=== PATIENT | female | born 1950 | race Caucasian/White ===

== ENCOUNTER 2017-07-02 12:07 | Inpatient (IN) | payer BC, MEDICARE ==
[2017-07-02 14:58] LABS: ADD MAN DIFF? NO
[2017-07-02 15:01] LABS: WHITE BLOOD COUNT 9.3 10^3/ul (4.8-10.8)
[2017-07-02 15:01] LABS: BASOPHIL # 0.1 10^3/ul (0.0-0.1); BASOPHILS % 0.5 % (0.0-2.0); EOSINOPHILS # 0.1 10^3/ul (0.0-0.5); EOSINOPHILS % 1.4 % (0.0-7.0); HEMATOCRIT 35.3 % (37.0-47.0); HEMOGLOBIN 10.7 g/dl (12.0-16.0); LYMPHOCYTES # 1.9 10^3/ul (0.8-2.9); LYMPHOCYTES % 20.5 % (15.0-51.0); MEAN CORPUSCULAR HEMOGLOBIN 20.6 pg (29.0-33.0); MEAN CORPUSCULAR HGB CONC 30.3 g/dl (32.0-37.0); MEAN PLATELET VOLUME 8.3 fl (7.4-10.4); MONOCYTE # 0.5 10^3/ul (0.3-0.9); MONOCYTES % 5.6 % (0.0-11.0); NEUTROPHIL # 6.6 10^3/ul (1.6-7.5); NEUTROPHILS % 71.4 % (39.0-77.0); PLATELET COUNT 596 10^3/UL (140-415); RED BLOOD COUNT 5.19 10^6/ul (4.20-5.40); RED CELL DISTRIBUTION WIDTH 13.9 % (11.5-14.5)
[2017-07-02 15:15] LABS: INR 1.04; PARTIAL THROMBOPLASTIN TIME 32.4 Sec (25.0-35.0); PROTIME 13.7 Sec (11.9-14.9); PT RATIO 1.1
[2017-07-02 15:21] LABS: ALANINE AMINOTRANSFERASE 34 IU/L (13-69); ALBUMIN 4.3 g/dl (3.3-4.9); ALBUMIN/GLOBULIN RATIO 0.91; ALKALINE PHOSPHATASE 89 IU/L (42-121); ANION GAP 15 (8-16); ASPARTATE AMINO TRANSFERASE 25 IU/L (15-46); BILIRUBIN,INDIRECT 0.1 mg/dl (0-1.1); BILIRUBIN,TOTAL 0.1 mg/dl (0.2-1.3); BLOOD UREA NITROGEN 9 mg/dl (7-20); CALCIUM 9.7 mg/dl (8.4-10.2); CARBON DIOXIDE 28 mmol/L (21-31); CHLORIDE 97 mmol/L (97-110); CREATININE 0.72 mg/dl (0.44-1.00); GLUCOSE 108 mg/dl (70-220); LIPASE 46 U/L (23-300); POTASSIUM 3.4 mmol/L (3.5-5.1); SODIUM 137 mmol/L (135-144)
[2017-07-02 15:24] LABS: LACTIC ACID 1.1 mmol/L (0.5-2.0)
[2017-07-02 15:28] LABS: ADD UMIC YES; UR ASCORBIC ACID NEGATIVE (NEGATIVE); UR BACTERIA FEW /HPF (NONE SEEN); UR BILIRUBIN (Dip) NEGATIVE (NEGATIVE); UR BLOOD (Dip) 1+ mg/dL (NEGATIVE); UR CLARITY CLEAR (CLEAR); UR COLOR YELLOW (YELLOW); UR GLUCOSE (Dip) NEGATIVE (NEGATIVE); UR KETONES (Dip) NEGATIVE (NEGATIVE); UR LEUKOCYTE ESTERASE (Dip) 3+ Leu/ul (NEGATIVE); UR NITRITE (Dip) NEGATIVE (NEGATIVE); UR RBC 2 /HPF (0-5); UR SPECIFIC GRAVITY (Dip) 1.005 (1.003-1.030); UR TOTAL PROTEIN (Dip) NEGATIVE (NEGATIVE); UR UROBILINOGEN (Dip) NEGATIVE (NEGATIVE); UR WBC 23 /HPF (0-5)
[2017-07-02] MEDS: PIPER-TAZO 3.375 GM IV (PMX) 50 ML IVPB (16:48)
[2017-07-02] MEDS: IOHEXOL 300MG/ML 150 ML BTL (16:59)
[2017-07-02] MEDS: SOD CHLORIDE 0.9% 100 ML (16:59)
[2017-07-02] MEDS: ONDANSETRON 4 MG INJ IV (19:51)
[2017-07-02] MEDS: morphine 4 MG/ML VIAL IV (19:51)
[2017-07-02] MEDS ORDERED: ONDANSETRON 4 MG INJ IV (21:00)
[2017-07-02] MEDS ORDERED: ACETAMINOPHEN 325 MG TAB PO ×2 (21:00→21:30)
[2017-07-02] MEDS ORDERED: ZOLPIDEM 5 MG TAB PO (21:30)
[2017-07-02] MEDS ORDERED: MAGNESIUM HYDROXIDE 30ML CUP PO (21:30)
[2017-07-02] MEDS ORDERED: HYDROCODONE/APAP (10/325) TAB PO (21:30)
[2017-07-02] MEDS ORDERED: LOSARTAN 50 MG TAB PO (22:00)
[2017-07-02] MEDS ORDERED: HYDROCHLOROTHIAZIDE 12.5 MG CAP PO (22:00)
[2017-07-02] MEDS: PROPRANOLOL 10 MG TAB PO (23:02)
[2017-07-02] MEDS: LOSARTAN 50 MG TAB PO (23:03)
[2017-07-02] MEDS: HYDROCHLOROTHIAZIDE 12.5 MG CAP PO (23:04)
[2017-07-02] MEDS: metroNIDAZOLE 500 MG/NS (PMX) 100 ML IVPB (23:10)
[2017-07-03 05:30] LABS: ADD MAN DIFF? NO
[2017-07-03 05:33] LABS: WHITE BLOOD COUNT 8.8 10^3/ul (4.8-10.8)
[2017-07-03 05:33] LABS: BASOPHIL # 0.1 10^3/ul (0.0-0.1); BASOPHILS % 0.8 % (0.0-2.0); EOSINOPHILS # 0.2 10^3/ul (0.0-0.5); EOSINOPHILS % 2.6 % (0.0-7.0); HEMATOCRIT 30.6 % (37.0-47.0); HEMOGLOBIN 9.5 g/dl (12.0-16.0); LYMPHOCYTES # 2.2 10^3/ul (0.8-2.9); LYMPHOCYTES % 24.9 % (15.0-51.0); MEAN CORPUSCULAR VOLUME 67.5 fl (82.0-101.0); MEAN PLATELET VOLUME 8.5 fl (7.4-10.4); MONOCYTE # 0.7 10^3/ul (0.3-0.9); MONOCYTES % 7.4 % (0.0-11.0); NEUTROPHIL # 5.6 10^3/ul (1.6-7.5); NEUTROPHILS % 63.6 % (39.0-77.0); PLATELET COUNT 506 10^3/UL (140-415); RED BLOOD COUNT 4.53 10^6/ul (4.20-5.40)
[2017-07-03] MEDS: metroNIDAZOLE 500 MG/NS (PMX) 100 ML IVPB ×3 (05:50→23:14)
[2017-07-03 05:52] LABS: ALANINE AMINOTRANSFERASE 29 IU/L (13-69); ALBUMIN 3.7 g/dl (3.3-4.9); ALKALINE PHOSPHATASE 68 IU/L (42-121); ANION GAP 11 (8-16); ASPARTATE AMINO TRANSFERASE 21 IU/L (15-46); BLOOD UREA NITROGEN 9 mg/dl (7-20); CALCIUM 9.4 mg/dl (8.4-10.2); CARBON DIOXIDE 30 mmol/L (21-31); CHLORIDE 102 mmol/L (97-110); CHOL/HDL RATIO 6.5 RATIO; CHOLESTEROL 137 mg/dl (100-200); CREATININE 0.75 mg/dl (0.44-1.00); GLUCOSE 110 mg/dl (70-220); HDL CHOLESTEROL 21 mg/dl (35-98); LDL CHOLESTEROL,CALCULATED 85 mg/dl; POTASSIUM 3.8 mmol/L (3.5-5.1); SODIUM 139 mmol/L (135-144); TOTAL PROTEIN 7.8 g/dl (6.1-8.1); TRIGLYCERIDES 155 mg/dl (0-149)
[2017-07-03 05:53] LABS: INR 1.09; PROTIME 14.3 Sec (11.9-14.9); PT RATIO 1.1
[2017-07-03 05:54] LABS: PARTIAL THROMBOPLASTIN TIME 32.2 Sec (25.0-35.0)
[2017-07-03 07:40] LABS: ERYTHROCYTE SEDIMENTATION RATE 44 mm/Hr (0-30)
[2017-07-03] MEDS: LEVOFLOXACIN 500MG/D5W (PMX) 100 ML IVPB (09:12)
[2017-07-03] MEDS: DILTIAZEM (CD) 120 MG CAP PO (09:12)
[2017-07-03 14:51] LABS: CANCER ANTIGEN 19-9 1.8 U/ml (0.0-37.0)
[2017-07-03] MEDS: BISACODYL (EC) 5 MG TAB PO ×2 (15:17→23:13)
[2017-07-03] MEDS: MAGNESIUM CITRATE 300 ML BTL PO (16:20)
[2017-07-03 17:56] LABS: CANCER ANTIGEN 125 6.6 U/ml (0.0-35.0)
[2017-07-03] MEDS: POLYETHYLENE GLYCOL 3350 119 GM POWDER PO ×2 (18:58→23:13)
[2017-07-03] MEDS: HYDROCHLOROTHIAZIDE 12.5 MG CAP PO (20:46)
[2017-07-03] MEDS: LOSARTAN 50 MG TAB PO (20:46)
[2017-07-03] MEDS: PROPRANOLOL 10 MG TAB PO (23:17)
[2017-07-04] MEDS: MICONAZOLE 2% 45 GM VAG CR VAG ×6 (01:30→21:09)
[2017-07-04] MEDS: metroNIDAZOLE 500 MG/NS (PMX) 100 ML IVPB ×3 (05:12→22:11)
[2017-07-04] MEDS: PROPOFOL 20 ML ×2 (07:05→07:56)
[2017-07-04] MEDS ORDERED: OXYCODONE/ACETAMINOPHEN (5/325) TAB PO ×2 (08:00)
[2017-07-04] MEDS ORDERED: MEPERIDINE 25 MG INJ IV (08:00)
[2017-07-04] MEDS ORDERED: EPHEDrine SULFATE 50 MG/5 ML SYG IV (08:00)
[2017-07-04] MEDS ORDERED: METOCLOPRAMIDE 10 MG INJ IV (08:00)
[2017-07-04] MEDS ORDERED: FENTAnyl 50 MCG/ML VIAL IV ×3 (08:00)
[2017-07-04] MEDS ORDERED: ONDANSETRON 4 MG INJ IV (08:00)
[2017-07-04] MEDS ORDERED: DIPHENHYDRAMINE 50 MG INJ IV (08:00)
[2017-07-04] MEDS ORDERED: hydrALAzine 20 MG INJ IV (08:00)
[2017-07-04] MEDS ORDERED: LABETALOL HCL 20MG INJ IV (08:00)
[2017-07-04] MEDS: PROPRANOLOL 10 MG TAB PO ×2 (09:00→21:09)
[2017-07-04] MEDS: DILTIAZEM (CD) 120 MG CAP PO (09:29)
[2017-07-04] MEDS: LEVOFLOXACIN 500MG/D5W (PMX) 100 ML IVPB (09:30)
[2017-07-04 11:01] LABS: CARCINOEMBRYONIC ANTIGEN 3.3 ng/ml (0.0-5.0)
[2017-07-04] MEDS: LOSARTAN 50 MG TAB PO (20:29)
[2017-07-04] MEDS: HYDROCHLOROTHIAZIDE 12.5 MG CAP PO (20:29)
[2017-07-05 05:59] LABS: ADD MAN DIFF? NO
[2017-07-05] MEDS: metroNIDAZOLE 500 MG/NS (PMX) 100 ML IVPB ×3 (05:59→22:24)
[2017-07-05 06:09] LABS: WHITE BLOOD COUNT 8.8 10^3/ul (4.8-10.8)
[2017-07-05 06:09] LABS: BASOPHIL # 0.1 10^3/ul (0.0-0.1); BASOPHILS % 0.6 % (0.0-2.0); EOSINOPHILS # 0.2 10^3/ul (0.0-0.5); EOSINOPHILS % 1.8 % (0.0-7.0); HEMATOCRIT 32.5 % (37.0-47.0); HEMOGLOBIN 9.9 g/dl (12.0-16.0); LYMPHOCYTES # 2.4 10^3/ul (0.8-2.9); LYMPHOCYTES % 27.3 % (15.0-51.0); MEAN CORPUSCULAR HEMOGLOBIN 20.6 pg (29.0-33.0); MEAN CORPUSCULAR HGB CONC 30.5 g/dl (32.0-37.0); MEAN CORPUSCULAR VOLUME 67.7 fl (82.0-101.0); MEAN PLATELET VOLUME 8.4 fl (7.4-10.4); MONOCYTE # 0.7 10^3/ul (0.3-0.9); MONOCYTES % 7.4 % (0.0-11.0); NEUTROPHIL # 5.4 10^3/ul (1.6-7.5); NEUTROPHILS % 62.1 % (39.0-77.0); PLATELET COUNT 584 10^3/UL (140-415); RED CELL DISTRIBUTION WIDTH 13.7 % (11.5-14.5)
[2017-07-05 06:47] LABS: ANION GAP 15 (8-16); BLOOD UREA NITROGEN 3 mg/dl (7-20); CALCIUM 8.7 mg/dl (8.4-10.2); CARBON DIOXIDE 27 mmol/L (21-31); CHLORIDE 100 mmol/L (97-110); CREATININE 0.65 mg/dl (0.44-1.00); GLUCOSE 101 mg/dl (70-220); POTASSIUM 3.2 mmol/L (3.5-5.1); SODIUM 139 mmol/L (135-144)
[2017-07-05] MEDS: LEVOFLOXACIN 500MG/D5W (PMX) 100 ML IVPB (09:20)
[2017-07-05] MEDS: DILTIAZEM (CD) 120 MG CAP PO (09:20)
[2017-07-05] MEDS: MICONAZOLE 2% 45 GM VAG CR VAG ×4 (09:22→20:16)
[2017-07-05] MEDS: CEPASTAT LOZENGE MT (14:57)
[2017-07-05] MEDS: POTASSIUM CHLORIDE (SR) 20 MEQ TAB PO (15:01)
[2017-07-05] MEDS: LOSARTAN 50 MG TAB PO (20:12)
[2017-07-05] MEDS: HYDROCHLOROTHIAZIDE 12.5 MG CAP PO (20:12)
[2017-07-05] MEDS: PROPRANOLOL 10 MG TAB PO (22:24)
[2017-07-06] MEDS: metroNIDAZOLE 500 MG/NS (PMX) 100 ML IVPB ×3 (05:53→22:06)
[2017-07-06] MEDS: DILTIAZEM (CD) 120 MG CAP PO (09:00)
[2017-07-06] MEDS: MICONAZOLE 2% 45 GM VAG CR VAG ×4 (09:00→20:40)
[2017-07-06] MEDS: POTASSIUM CHLORIDE (SR) 20 MEQ TAB PO (09:24)
[2017-07-06] MEDS: LEVOFLOXACIN 500MG/D5W (PMX) 100 ML IVPB (09:25)
[2017-07-06] MEDS: LOSARTAN 50 MG TAB PO (20:41)
[2017-07-06] MEDS: PROPRANOLOL 10 MG TAB PO (20:41)
[2017-07-06] MEDS: HYDROCHLOROTHIAZIDE 12.5 MG CAP PO (20:42)
[2017-07-07] MEDS: metroNIDAZOLE 500 MG/NS (PMX) 100 ML IVPB ×3 (05:58→22:31)
[2017-07-07 07:14] LABS: ANION GAP 13 (8-16); BLOOD UREA NITROGEN 8 mg/dl (7-20); CALCIUM 9.1 mg/dl (8.4-10.2); CARBON DIOXIDE 28 mmol/L (21-31); CHLORIDE 103 mmol/L (97-110); CREATININE 0.71 mg/dl (0.44-1.00); GLUCOSE 95 mg/dl (70-220); SODIUM 140 mmol/L (135-144)
[2017-07-07] MEDS: LEVOFLOXACIN 500MG/D5W (PMX) 100 ML IVPB (08:54)
[2017-07-07] MEDS: POTASSIUM CHLORIDE (SR) 20 MEQ TAB PO (08:55)
[2017-07-07] MEDS: DILTIAZEM (CD) 120 MG CAP PO (08:56)
[2017-07-07] MEDS: MICONAZOLE 2% 45 GM VAG CR VAG ×2 (08:57→13:00)
[2017-07-07] MEDS: LOSARTAN 50 MG TAB PO (20:52)
[2017-07-07] MEDS: HYDROCHLOROTHIAZIDE 12.5 MG CAP PO (20:52)
[2017-07-07] MEDS: ENOXAPARIN 40 MG/0.4 ML SYG SC (21:04)
[2017-07-07] MEDS: PROPRANOLOL 10 MG TAB PO (23:37)
[2017-07-08] MEDS: metroNIDAZOLE 500 MG/NS (PMX) 100 ML IVPB ×3 (06:30→22:03)
[2017-07-08] MEDS: LEVOFLOXACIN 500MG/D5W (PMX) 100 ML IVPB (09:00)
[2017-07-08] MEDS: DILTIAZEM (CD) 120 MG CAP PO (09:18)
[2017-07-08] MEDS: POTASSIUM CHLORIDE (SR) 20 MEQ TAB PO (09:18)
[2017-07-08] MEDS: ENOXAPARIN 40 MG/0.4 ML SYG SC ×2 (09:24→20:49)
[2017-07-08] MEDS: HYDROCHLOROTHIAZIDE 12.5 MG CAP PO (20:47)
[2017-07-08] MEDS: LOSARTAN 50 MG TAB PO (20:47)
[2017-07-08] MEDS: PROPRANOLOL 10 MG TAB PO (23:09)
[2017-07-09] MEDS: metroNIDAZOLE 500 MG/NS (PMX) 100 ML IVPB ×3 (05:57→21:49)
[2017-07-09] MEDS: DILTIAZEM (CD) 120 MG CAP PO (08:21)
[2017-07-09] MEDS: POTASSIUM CHLORIDE (SR) 20 MEQ TAB PO (08:21)
[2017-07-09] MEDS: LEVOFLOXACIN 500MG/D5W (PMX) 100 ML IVPB (08:21)
[2017-07-09] MEDS: ENOXAPARIN 40 MG/0.4 ML SYG SC (08:22)
[2017-07-09 12:06] LABS: INR 1.05; PROTIME 13.8 Sec (11.9-14.9); PT RATIO 1.1
[2017-07-09] MEDS: PEG/ELECTROLYTES 4L BTL PO (12:13)
[2017-07-09] MEDS: HYDROCHLOROTHIAZIDE 12.5 MG CAP PO (20:34)
[2017-07-09] MEDS: LOSARTAN 50 MG TAB PO (20:35)
[2017-07-09] MEDS: PROPRANOLOL 10 MG TAB PO (22:52)
[2017-07-10 05:17] LABS: WHITE BLOOD COUNT 11.4 10^3/ul (4.8-10.8)
[2017-07-10 05:17] LABS: ADD MAN DIFF? NO; BASOPHIL # 0.1 10^3/ul (0.0-0.1); BASOPHILS % 0.5 % (0.0-2.0); EOSINOPHILS # 0.1 10^3/ul (0.0-0.5); EOSINOPHILS % 1.1 % (0.0-7.0); LYMPHOCYTES # 1.7 10^3/ul (0.8-2.9); LYMPHOCYTES % 15.1 % (15.0-51.0); MEAN CORPUSCULAR HEMOGLOBIN 21.1 pg (29.0-33.0); MEAN CORPUSCULAR VOLUME 67.9 fl (82.0-101.0); MEAN PLATELET VOLUME 8.7 fl (7.4-10.4); MONOCYTE # 0.8 10^3/ul (0.3-0.9); MONOCYTES % 7.1 % (0.0-11.0); NEUTROPHIL # 8.7 10^3/ul (1.6-7.5); NEUTROPHILS % 75.9 % (39.0-77.0); PLATELET COUNT 429 10^3/UL (140-415); RED BLOOD COUNT 4.27 10^6/ul (4.20-5.40); RED CELL DISTRIBUTION WIDTH 15.3 % (11.5-14.5)
[2017-07-10 05:37] LABS: ANION GAP 10 (8-16); BLOOD UREA NITROGEN 2 mg/dl (7-20); CALCIUM 8.6 mg/dl (8.4-10.2); CARBON DIOXIDE 25 mmol/L (21-31); CHLORIDE 104 mmol/L (97-110); CREATININE 0.56 mg/dl (0.44-1.00); GLUCOSE 92 mg/dl (70-220); POTASSIUM 3.2 mmol/L (3.5-5.1); SODIUM 136 mmol/L (135-144)
[2017-07-10] MEDS: metroNIDAZOLE 500 MG/NS (PMX) 100 ML IVPB ×3 (05:58→21:16)
[2017-07-10] MEDS: LEVOFLOXACIN 500MG/D5W (PMX) 100 ML IVPB (09:47)
[2017-07-10] MEDS: DILTIAZEM (CD) 120 MG CAP PO (09:48)
[2017-07-10] MEDS: POTASSIUM CHLORIDE (SR) 20 MEQ TAB PO (09:48)
[2017-07-10] MEDS ORDERED: PROPOFOL 20 ML (13:27)
[2017-07-10] MEDS ORDERED: ROCURONIUM 50 MG INJ ×4 (13:27→15:01)
[2017-07-10] MEDS ORDERED: MIDAZOLAM 1 MG/ML 2 ML INJ (13:27)
[2017-07-10] MEDS ORDERED: LIDOCAINE 1% (MDV) 20 ML INJ (13:28)
[2017-07-10] MEDS ORDERED: ROPIVACAINE 0.2% 20 ML VIAL (14:43)
[2017-07-10] MEDS ORDERED: ONDANSETRON 4 MG INJ ×2 (14:45→18:21)
[2017-07-10] MEDS ORDERED: FAMOTIDINE 20 MG INJ (14:46)
[2017-07-10] MEDS ORDERED: DEXAMETHASONE 4 MG/ML 1 ML INJ (14:46)
[2017-07-10] MEDS ORDERED: PHENYLephrine (100 MCG/ML) 5ML SYG (14:47)
[2017-07-10] MEDS ORDERED: FENTAnyl 50 MCG/ML VIAL (14:54)
[2017-07-10] MEDS ORDERED: ROPIVACAINE 0.5 % 30 ML VIAL (14:55)
[2017-07-10] MEDS ORDERED: metroNIDAZOLE 500 MG/NS (PMX) 100 ML IVPB (15:01)
[2017-07-10] MEDS ORDERED: CEFAZOLIN 1 GM INJ ×2 (15:01→17:46)
[2017-07-10] MEDS ORDERED: FENTAnyl 2MCG/ML-ROPIV 0.2% 100 ML (17:56)
[2017-07-10] MEDS ORDERED: SUGAMMADEX SODIUM 200 MG/2 ML VIAL IV ×2 (18:21→18:47)
[2017-07-10] MEDS ORDERED: morphine 2 MG INJ IV (19:00)
[2017-07-10] MEDS: LIDOCAINE 2% (MDV) 20 ML INJ (19:28)
[2017-07-10] MEDS: BUPIVACAINE 0.5%/EPI (SDV) 30 ML INJ (19:28)
[2017-07-10] MEDS ORDERED: NALOXONE (0.4 MG/ML) INJ IV (19:30)
[2017-07-10] MEDS ORDERED: HYDROmorphONE 0.5 MG/0.5 ML SYG IV ×2 (19:30)
[2017-07-10] MEDS ORDERED: HYDROmorphONE (0.2 MG/ML) 10ML SYG IV (20:00)
[2017-07-10] MEDS: HYDROCHLOROTHIAZIDE 12.5 MG CAP PO (21:15)
[2017-07-10] MEDS: PROPRANOLOL 10 MG TAB PO (21:15)
[2017-07-10] MEDS: LOSARTAN 50 MG TAB PO (21:15)
[2017-07-10] MEDS: DEXTROSE 5%-0.45% NACL 1,000 ML IV (22:44)
[2017-07-11] MEDS: FENTAnyl 2MCG/ML-ROPIV 0.2% 100 ML BAG EPI ×3 (02:27→17:35)
[2017-07-11] MEDS: metroNIDAZOLE 500 MG/NS (PMX) 100 ML IVPB ×3 (05:30→22:25)
[2017-07-11 05:40] LABS: ADD MAN DIFF? NO
[2017-07-11 07:27] LABS: WHITE BLOOD COUNT 18.7 10^3/ul (4.8-10.8)
[2017-07-11 07:27] LABS: BASOPHILS % 0.2 % (0.0-2.0); HEMATOCRIT 28.3 % (37.0-47.0); HEMOGLOBIN 8.5 g/dl (12.0-16.0); LYMPHOCYTES # 0.9 10^3/ul (0.8-2.9); LYMPHOCYTES % 4.6 % (15.0-51.0); MEAN CORPUSCULAR HEMOGLOBIN 21.1 pg (29.0-33.0); MEAN CORPUSCULAR VOLUME 70.4 fl (82.0-101.0); MEAN PLATELET VOLUME 8.6 fl (7.4-10.4); MONOCYTE # 0.9 10^3/ul (0.3-0.9); NEUTROPHIL # 16.8 10^3/ul (1.6-7.5); NEUTROPHILS % 89.6 % (39.0-77.0); PLATELET COUNT 400 10^3/UL (140-415); RED BLOOD COUNT 4.02 10^6/ul (4.20-5.40); RED CELL DISTRIBUTION WIDTH 15.3 % (11.5-14.5)
[2017-07-11 07:50] LABS: ANION GAP 11 (8-16); BLOOD UREA NITROGEN 6 mg/dl (7-20); CALCIUM 8.5 mg/dl (8.4-10.2); CARBON DIOXIDE 26 mmol/L (21-31); CHLORIDE 106 mmol/L (97-110); CREATININE 0.66 mg/dl (0.44-1.00); GLUCOSE 133 mg/dl (70-220); POTASSIUM 3.9 mmol/L (3.5-5.1); SODIUM 139 mmol/L (135-144)
[2017-07-11] MEDS: LEVOFLOXACIN 500MG/D5W (PMX) 100 ML IVPB (08:54)
[2017-07-11] MEDS: DILTIAZEM (CD) 120 MG CAP PO (08:56)
[2017-07-11] MEDS: DEXTROSE 5%-0.45% NACL 1,000 ML IV ×3 (08:57→20:47)
[2017-07-11] MEDS: POTASSIUM CHLORIDE (SR) 20 MEQ TAB PO (08:59)
[2017-07-11] MEDS: ONDANSETRON 4 MG INJ IV (13:20)
[2017-07-11] MEDS: HYDROCHLOROTHIAZIDE 12.5 MG CAP PO (20:40)
[2017-07-11] MEDS: LOSARTAN 50 MG TAB PO (20:40)
[2017-07-11] MEDS: PROPRANOLOL 10 MG TAB PO (22:29)
[2017-07-12] MEDS: FENTAnyl 2MCG/ML-ROPIV 0.2% 100 ML BAG EPI ×3 (00:43→16:58)
[2017-07-12] MEDS: DEXTROSE 5%-0.45% NACL 1,000 ML IV ×2 (05:25→14:00)
[2017-07-12] MEDS: metroNIDAZOLE 500 MG/NS (PMX) 100 ML IVPB ×2 (05:25→14:41)
[2017-07-12 06:14] LABS: ADD MAN DIFF? NO
[2017-07-12 06:26] LABS: BASOPHIL # 0.1 10^3/ul (0.0-0.1); BASOPHILS % 0.4 % (0.0-2.0); EOSINOPHILS # 0.1 10^3/ul (0.0-0.5); EOSINOPHILS % 0.5 % (0.0-7.0); HEMATOCRIT 26.2 % (37.0-47.0); HEMOGLOBIN 7.8 g/dl (12.0-16.0); LYMPHOCYTES # 2.1 10^3/ul (0.8-2.9); LYMPHOCYTES % 16.2 % (15.0-51.0); MEAN CORPUSCULAR HGB CONC 29.8 g/dl (32.0-37.0); MEAN CORPUSCULAR VOLUME 70.4 fl (82.0-101.0); MEAN PLATELET VOLUME 9.2 fl (7.4-10.4); MONOCYTES % 7.2 % (0.0-11.0); NEUTROPHIL # 9.9 10^3/ul (1.6-7.5); NEUTROPHILS % 75.2 % (39.0-77.0); PLATELET COUNT 374 10^3/UL (140-415); RED BLOOD COUNT 3.72 10^6/ul (4.20-5.40); RED CELL DISTRIBUTION WIDTH 15.4 % (11.5-14.5)
[2017-07-12 06:26] LABS: WHITE BLOOD COUNT 13.2 10^3/ul (4.8-10.8)
[2017-07-12 07:38] LABS: ANION GAP 10 (8-16); BLOOD UREA NITROGEN 5 mg/dl (7-20); CALCIUM 8.4 mg/dl (8.4-10.2); CARBON DIOXIDE 29 mmol/L (21-31); CHLORIDE 101 mmol/L (97-110); CREATININE 0.66 mg/dl (0.44-1.00); GLUCOSE 95 mg/dl (70-220); POTASSIUM 3.5 mmol/L (3.5-5.1); SODIUM 136 mmol/L (135-144)
[2017-07-12] MEDS: LEVOFLOXACIN 500MG/D5W (PMX) 100 ML IVPB (08:44)
[2017-07-12] MEDS: DILTIAZEM (CD) 120 MG CAP PO (09:15)
[2017-07-12] MEDS: POTASSIUM CHLORIDE (SR) 20 MEQ TAB PO (09:15)
[2017-07-12 16:22] LABS: IMMEDIATE SPIN CROSSMATCH 1 2
[2017-07-12] MEDS: HYDROCHLOROTHIAZIDE 12.5 MG CAP PO (20:30)
[2017-07-12] MEDS: LOSARTAN 50 MG TAB PO (20:30)
[2017-07-12] MEDS: PROPRANOLOL 10 MG TAB PO (23:29)
[2017-07-13] MEDS: DEXTROSE 5%-0.45% NACL 1,000 ML IV ×3 (00:59→20:00)
[2017-07-13] MEDS: POTASSIUM CHLORIDE (SR) 20 MEQ TAB PO (09:09)
[2017-07-13] MEDS: DILTIAZEM (CD) 120 MG CAP PO (09:09)
[2017-07-13] MEDS: LOSARTAN 50 MG TAB PO (20:20)
[2017-07-13] MEDS: HYDROCHLOROTHIAZIDE 12.5 MG CAP PO (20:21)
[2017-07-13] MEDS: PROPRANOLOL 10 MG TAB PO ×2 (20:21→23:25)
[2017-07-14] MEDS: DEXTROSE 5%-0.45% NACL 1,000 ML IV (05:44)
[2017-07-14 06:09] LABS: ADD MAN DIFF? NO
[2017-07-14 06:16] LABS: WHITE BLOOD COUNT 8.9 10^3/ul (4.8-10.8)
[2017-07-14 06:16] LABS: BASOPHIL # 0.1 10^3/ul (0.0-0.1); BASOPHILS % 0.7 % (0.0-2.0); EOSINOPHILS # 0.2 10^3/ul (0.0-0.5); EOSINOPHILS % 1.9 % (0.0-7.0); HEMATOCRIT 30.6 % (37.0-47.0); HEMOGLOBIN 9.6 g/dl (12.0-16.0); LYMPHOCYTES # 1.7 10^3/ul (0.8-2.9); LYMPHOCYTES % 18.9 % (15.0-51.0); MEAN CORPUSCULAR HEMOGLOBIN 22.6 pg (29.0-33.0); MEAN CORPUSCULAR HGB CONC 31.4 g/dl (32.0-37.0); MEAN CORPUSCULAR VOLUME 72.2 fl (82.0-101.0); MEAN PLATELET VOLUME 9.2 fl (7.4-10.4); MONOCYTE # 0.8 10^3/ul (0.3-0.9); MONOCYTES % 8.5 % (0.0-11.0); NEUTROPHIL # 6.2 10^3/ul (1.6-7.5); NEUTROPHILS % 69.7 % (39.0-77.0); PLATELET COUNT 375 10^3/UL (140-415); RED BLOOD COUNT 4.24 10^6/ul (4.20-5.40); RED CELL DISTRIBUTION WIDTH 17.9 % (11.5-14.5)
[2017-07-14 06:45] LABS: ANION GAP 9 (8-16); BLOOD UREA NITROGEN 4 mg/dl (7-20); CALCIUM 8.5 mg/dl (8.4-10.2); CARBON DIOXIDE 32 mmol/L (21-31); CHLORIDE 102 mmol/L (97-110); CREATININE 0.61 mg/dl (0.44-1.00); GLUCOSE 107 mg/dl (70-220); POTASSIUM 3.2 mmol/L (3.5-5.1); SODIUM 140 mmol/L (135-144)
[2017-07-14] MEDS: POTASSIUM CHLORIDE (SR) 20 MEQ TAB PO ×2 (08:33→17:19)
[2017-07-14] MEDS: DILTIAZEM (CD) 120 MG CAP PO (08:34)
[2017-07-14] MEDS: HYDROCHLOROTHIAZIDE 12.5 MG CAP PO (20:52)
[2017-07-14] MEDS: LOSARTAN 50 MG TAB PO (20:52)
[2017-07-14] MEDS: PROPRANOLOL 10 MG TAB PO (23:23)
[2017-07-15] MEDS: POTASSIUM CHLORIDE (SR) 20 MEQ TAB PO (09:12)
[2017-07-15] MEDS: DILTIAZEM (CD) 120 MG CAP PO (09:12)
[2017-07-15] MEDS: LOSARTAN 50 MG TAB PO (20:00)
[2017-07-15] MEDS: HYDROCHLOROTHIAZIDE 12.5 MG CAP PO (20:00)
== END 2017-07-15 21:25 | disposition home or self-care (01) | DRG 330 ==
LOC: FTE 12:07 → MS1 20:40
PROC: 0DBN4ZZ Excision of Sigmoid Colon, Percutaneous Endoscopic Approach (ICD-10-PCS; principal; 2017-07-04 06:35)
PROC: 0DBP4ZZ Excision of Rectum, Percutaneous Endoscopic Approach (ICD-10-PCS; 2017-07-04 06:35)
PROC: 0UJH4ZZ Inspection of Vagina and Cul-de-sac, Percutaneous Endoscopic Approach (ICD-10-PCS; 2017-07-04 06:35)
PROC: 0DJD8ZZ Inspection of Lower Intestinal Tract, Via Natural or Artificial Opening Endoscopic (ICD-10-PCS; 2017-07-04 06:35)
PROC: 0DBL8ZX Excision of Transverse Colon, Via Natural or Artificial Opening Endoscopic, Diagnostic (ICD-10-PCS; 2017-07-04 06:35)
PROC: 0DBN8ZX Excision of Sigmoid Colon, Via Natural or Artificial Opening Endoscopic, Diagnostic (ICD-10-PCS; 2017-07-04 06:35)
PROC: 0T9880Z Drainage of Bilateral Ureters with Drainage Device, Via Natural or Artificial Opening Endoscopic (ICD-10-PCS; 2017-07-04 06:35)
PROC: 0T9B70Z Drainage of Bladder with Drainage Device, Via Natural or Artificial Opening (ICD-10-PCS; 2017-07-04 06:35)
PROC: 30233N1 Transfusion of Nonautologous Red Blood Cells into Peripheral Vein, Percutaneous Approach (ICD-10-PCS; 2017-07-04 06:35)
DX: N82.3 Fistula of vagina to large intestine (principal); K57.20 Diverticulitis of large intestine with perforation and abscess without bleeding; J98.4 Other disorders of lung; I10 Essential (primary) hypertension; N39.0 Urinary tract infection, site not specified; E66.9 Obesity, unspecified; D12.3 Benign neoplasm of transverse colon; R19.09 Other intra-abdominal and pelvic swelling, mass and lump; Z68.33 Body mass index [BMI] 33.0-33.9, adult; E04.1 Nontoxic single thyroid nodule; M79.7 Fibromyalgia; N76.0 Acute vaginitis; R59.0 Localized enlarged lymph nodes; E87.6 Hypokalemia; Z90.710 Acquired absence of both cervix and uterus; K40.90 Unilateral inguinal hernia, without obstruction or gangrene, not specified as recurrent; D50.9 Iron deficiency anemia, unspecified
CPT/HCPCS: 36415; 36430; 71045; 71250; 74177; 80048; 80053; 80061; 81001; 82378; 83605; 83690; 84443; 84703; 85025; 85610; 85651; 85730; 86301; 86304; 86850; 86900; 86901; 86920; 87040; 87086; 93005; 96365; 96366; 96368; 99285-25